=== PATIENT | male | born 1955 | race Caucasian/White ===

== ENCOUNTER 2025-04-09 13:11 | Outpatient (CLI) | payer MEDICARE, SELFPAY ==
--- NOTE | 2025-04-09 13:14 | CT_ITS ---
FINAL REPORT CLINICAL HISTORY: SCREENING current smoker 1ppd x55 years COMPARISON: None FINDINGS: CT CHEST LOW DOSE SCREENING HISTORY: Screening exam for lung cancer. DOSE: CTDI vol: 2.90 mGy, DLP: 108.38 mGy*cm TECHNIQUE: Axial CT without IV contrast administration using low dose protocol. This study was performed with techniques to keep radiation doses as low as reasonably achievable, (ALARA). Individualized dose reduction techniques using automated exposure control or adjustment of mA and/or kV according to the patient's size were employed. No acute lung disease is present. There is a 4 mm right lower lobe nodule seen on image 36 of series 3 and a 3 mm nodule in the left lung apex seen on image 13 of series 3. There is evidence of old calcified granulomatous disease. No pleural or pericardial effusion is seen. No adenopathy or mass lesion is present. Limited images of the upper abdomen demonstrate a 6 mm left renal stone. IMPRESSION: Small lung nodules favored to represent granulomas. LUNG RADS CATEGORY 2 RECOMMENDATION: 12 month LDCT follow up Reviewed, Interpreted and Dictated by Rod Hazel MD Transcribed by Kayleigh Tavera Authenticated and [facility]
== END 2025-04-09 23:59 | disposition home or self-care (01) ==
LOC: RAD 13:12
PROVIDERS: PCP Nurse Practitioner Family; Visit Provider Nurse Practitioner Family
DX: R91.8 Other nonspecific abnormal finding of lung field (principal); Z13.9 Encounter for screening, unspecified
CPT/HCPCS: 71271